=== PATIENT | female | born 1990 | race Caucasian/White ===

== ENCOUNTER 2019-09-22 10:45 | Emergency (ER) | payer MEDICAID, SELFPAY ==
[2019-09-22 10:51] VITALS: BMI 33.6
[2019-09-22 10:55] VITALS: BP 132/85; PULSE 111; RESP 18; TEMP 36.9; O2SAT 98
--- NOTE | 2019-09-22 11:04 | ED_ITS ---
HPI - Skin/Abscess/Foreign Bdy General: Chief complaint: Skin/Abscess/Foreign Body Stated complaint: 33 WEEKS PREG/INSECT BITE/SENT BY DR VANCE Time Seen by Provider: 09/22/19 10:50 History of Present Illness: HPI narrative: Patient is female is sent over by Edmundo Vance's office who has possible spider bite to her left upper arm. She is 33 weeks was seen at the local primary care provider in [place] and was placed on antibiotics and does not seem like the area is improving redness is still present was sent here by Dr. ruano to be evaluated. complaint: other (Possible brown recluse bite left upper arm) Onset (ago): day(s) Severity: mild Associated symptoms: Reports no associated symptoms; Deny chills, fever(s), nausea or vomiting Treatments prior to arrival: other (Antibiotics) Review of Systems Const: Denies: fever(s), chills or body aches Eyes: Denies: change in vision or blurry vision ENMT: Denies: throat pain or nasal congestion Card: Denies: chest pain or dyspnea on exertion Resp: Denies: dyspnea, productive cough or non-productive cough GI: Denies: abdominal pain, nausea or vomiting Musc: Denies: extremity pain Skin/Breast: Reports: erythema (Left upper arm times few days possible spider bite) and other; Denies: rash Neuro: Denies: headache(s) Psych: Denies: anxiety or depression Son/Lymph: Denies: easy bruising PFSH ED PFSH: Family History (Updated 09/09/19 @ 08:55 by Eufemia Aguirre RN) Grandmother Diabetes paternal Stroke paternal Denies family history of Clotting disorder Hyperlipidemia Anesthesia complication Bleeding disorder Hypertension Social History (Updated 09/09/19 @ 08:55 by Eufemia Aguirre RN) Smoking and tobacco status: never smoked Alcohol intake: never Female Reproductive History: Date of last menstrual period: 01/29/19 Physical Exam Const: COMMON NORMALS: no acute distress, average body habitus and patient oriented x3 HENMT: COMMON NORMALS: normocephalic HEAD & SCALP: normal to inspection and normocephalic FACE & SINUS: normal facial exam Eye: COMMON NORMALS: conjunctivae normal GENERAL EYE: appearance normal, both eyes and all related structures CONJUNCTIVA: Yes conjunctivae normal Neck/C-Spine: COMMON NORMALS: no JVD Chest: COMMONS NORMALS: normal inspection of the chest Resp: COMMON NORMALS: normal respiratory effort Cardio: COMMON NORMALS: no JVD and regular rhythm RATE: tachycardic RHYTHM: regular rhythm GI: COMMON NORMALS: Normal to inspection, nondistended, normoactive bowel sounds present Extremity: COMMON NORMALS: normal to inspection and full ROM Neuro: COMMON NORMALS: patient oriented x3 Skin: GENERAL SKIN EXAM: other (Patient has an area of redness left upper arm medial aspect centered around the central area of induration that strongly resembles what a brown recluse bite would look like. Redness extends out about 2 and half inches from the center and then down to the base of the left upper arm does not follow blood tract. Is not swollen. Peers to be consistent with localized reaction no lymphadenopathy noted) Course Vital Signs: Vital signs: Vital Signs Temperature 98.4 F 09/22/19 10:55 Pulse Rate 111 H 09/22/19 10:55 Respiratory Rate 18 09/22/19 10:55 Blood Pressure 132/85 09/22/19 10:55 Pulse Oximetry 98 09/22/19 10:55 Discharge Plan Discharge Prescriptions: No Action Unisom (doxylamine) 25 mg tablet 25 mg PO Q6H PRNRF: 0 acetaminophen [Tylenol Extra Strength] 500 mg tablet 500 mg PO Q6H RF: 0 prenat.vits,jc,[id number] Tablet 1 tab PO DAILY RF: 0 Coding Level of Care Code ED Chief Psychologist for Kaley Lozoya
[2019-09-22 11:25] VITALS: BP 132/85; PULSE 105; RESP 18; O2SAT 99
== END 2019-09-22 11:28 | disposition home or self-care (01) ==
PROVIDERS: Emergency Provider Nurse Practitioner Family
DX: O9A.213 Injury, poisoning and certain other consequences of external causes complicating pregnancy, third trimester (principal); S41.152A Open bite of left upper arm, initial encounter; Z3A.33 33 weeks gestation of pregnancy; W57.XXXA Bitten or stung by nonvenomous insect and other nonvenomous arthropods, initial encounter
CPT/HCPCS: 12345; 99281

== ENCOUNTER → 2019-10-28 08:43 | Outpatient (BNVA) | payer MEDICAID, SELFPAY | PROVIDERS: Visit Provider Internal Medicine | DX: Z11.59 Encounter for screening for other viral diseases (principal) | CPT/HCPCS: 87635 ==

== ENCOUNTER 2019-11-02 05:41 | Inpatient (IN) | payer MEDICAID, SELFPAY ==
[2019-11-02] VITALS (19 sets, daily range): BP systolic 100–145; BP diastolic 59–90; PULSE 82–117; RESP 16–20; TEMP 36.5–36.9; O2SAT 94–98; BMI 36.0
[2019-11-02] MEDS: lactated ringers 1,000 ML 999 ML IV ×2 (06:22→06:30)
[2019-11-02 06:29] LABS: Basophils % 0.3 %; Eosinophils # 0.3 10^3/uL (0.0-0.8); Eosinophils % 2.4 %; Hemoglobin 12.7 g/dL (11.5-15.3); Lymphocytes # 2.8 10^3/uL (0.8-4.8); Lymphocytes % 20.6 %; Mean Corpuscular HGB Conc 34.3 g/dL (30.0-36.0); Mean Corpuscular Hemoglobin 31.4 pg (28.0-34.0); Mean Corpuscular Volume 91.6 fL (81-99); Mean Platelet Volume 10.5 fL (7.4-10.4); Monocytes # 0.8 10^3/uL (0.2-0.9); Monocytes % 6.1 %; Neutrophils % 69.6 %; Nucleated Red Blood Cells % 0 %; Platelet Count 202 10^3/cmm (130-400); Red Blood Count 4.04 10^6/uL (4.1-5.3); Red Cell Distribution Width 13.2 % (12.1-15.1); White Blood Count 13.5 10^3/uL (4.0-10.0)
[2019-11-02] MEDS: metoclopramide 5 mg/mL SDV 2 mL 10 MG IVP (06:51)
[2019-11-02] MEDS: citric acid-sodium citrate 30 mL UDC PO (06:51)
[2019-11-02] MEDS: famotidine 20 mg/2 mL INJ IVP (06:52)
--- NOTE | 2019-11-02 08:26 | PM.OP ---
Operative Report Date of procedure: November 02, 2019 Pre-op Diagnosis: previous c section Post-op diagnosis: same Post-op Findings: Male term infant, With nuchal cord ?1, Apgars 8/9, weight Procedure Done: Repeat low-transverse delivery Pathology: none sent Surgeon: Kevyn Chacon M.D. Anesthesia: Nerve Block (Spinal) Estimated blood loss (mL): 800 IV fluids (mL): 1,000 Urine output (mL): 50 Complications: None Condition: stable Disposition: other (OB recovery) Brief History: Ms. Browne is a 29 y/o with an LMP of 01/29/2019 and an EDC of 11/05/2019 based on LMP which places her at 39 4/7 weeks gestation with 2 previous delivery. Procedure: After assuring informed consent, the patient was taken to the operating room and anesthesia was initiated. She was placed in the dorsal supine position with a left lateral tilt. The abdomen was prepped and draped in the usual sterile manner. A time-out procedure was performed. A Pfannenstiel skin incision was made with the scalpel and carried through to the underlying layer of fascia with the Bovie. The fascia was nicked in the midline and the incision extended laterally with the Patricio scissors. The superior aspect of the fascial incision was then grasped with Marco clamps and elevated and the underlying rectus muscle dissected off bluntly and sharp with patricio scissors dense adhesions. Attention was then turned to the inferior aspect of the incision which, in similar fashion, was grasped and tented up with Marco clamps and the rectus muscle dissected bluntly. The rectus muscles were then in the midline and the peritoneum identified, tented up and entered sharply with Metzenbaum scissors. The peritoneal incision was then extended superiorly and inferiorly with good visualization of the bladder. The Mikhail O retractor was then inserted and the vesicouterine peritoneum identified, grasped with pickups and entered sharply with Metzenbaum scissors. This incision was then extended laterally and the bladder flap created digitally. The uterus incised in a low transverse fashion with the scalpel. The uterine incision was then extended with the bandage scissors. The was then delivered in the cephalic presentation atraumatically vacuum-assisted , 1 nuchal cord noted. The nose and the mouth were suctioned with bulb and the cord clamped and cut. The infant was handed over to awaiting electronic publications specialist and nursing personnel. Apgars 8/9 with weight of 4300 g. The cord was normal and had three vessels. Amniotic fluid was clear. The placenta was then removed manually and the uterus exteriorized and cleared of all clots and debris. The uterine incision was repaired with 0 Vicryl in a running-locked fashion. A second layer of the same suture was used to obtain excellent hemostasis. The gutters were cleared of all clots. The uterus was then returned to the abdomen. The rectus muscles were approximated with 3-0 chromic gut. The The Exparel was infused around the incision for pain management. The fascia was reapproximated with 0 Vicryl in an interrupted running fashion. The skin was closed with Insorb?s subcuticular absorbable yaya. The patient tolerated the procedure well. The sponge, lap and needle counts were correct times three. The patient was given Ancef 2 gm intravenously immediately after delivery of the .
[2019-11-02] MEDS: ondansetron 2 mg/ML SDV 2 mL 4 MG IVP ×2 (08:57→14:45)
[2019-11-02] MEDS: scopolamine 1.5 Patch 1 PATCH TRANSDERMA (10:09)
--- NOTE | 2019-11-02 10:51 | PC.NURSE ---
Pt ambulated to OR at this time without difficulty.
[2019-11-02] MEDS: ketorolac 30 mg/mL INJ IVP ×2 (14:45→20:25)
[2019-11-02] MEDS: dextrose 5%-lactated ringers 1,000 ML 125 ML IV (15:31)
[2019-11-02 21:10] LABS: Hematocrit 34.8 % (37.0-47.0); Hemoglobin 11.9 g/dL (11.5-15.3); Mean Corpuscular HGB Conc 34.2 g/dL (30.0-36.0); Mean Corpuscular Hemoglobin 31.9 pg (28.0-34.0); Mean Corpuscular Volume 93.3 fL (81-99); Mean Platelet Volume 10.4 fL (7.4-10.4); Platelet Count 215 10^3/cmm (130-400); Red Blood Count 3.73 10^6/uL (4.1-5.3); Red Cell Distribution Width 13.2 % (12.1-15.1); White Blood Count 19.8 10^3/uL (4.0-10.0)
[2019-11-03] MEDS: HYDROcodone-acetaminophen 5-325 mg Tablet PO ×3 (01:55→20:32)
[2019-11-03] MEDS: ketorolac 30 mg/mL INJ IVP (01:55)
[2019-11-03 04:00] VITALS: BP 108/71; PULSE 85; RESP 18; TEMP 36.7; O2SAT 98
[2019-11-03] MEDS: docusate sodium 100 mg Capsule PO ×2 (09:30→18:12)
[2019-11-03] MEDS: prenatal vitamin Capsule 1 CAP PO (09:30)
[2019-11-03] MEDS: ferrous sulfate EC 325 mg Tablet PO (09:31)
[2019-11-03 09:34] VITALS: BP 107/68; PULSE 91
[2019-11-03 15:52] VITALS: BP 102/69; PULSE 87; RESP 17
--- NOTE | 2019-11-03 17:59 | P.PN_ITS ---
Subjective Subjective: Interval history: 29 y/o with an LMP of 01/29/2019 and an EDC of 11/05/2019 based on LMP with HO C/S x2. S/P repeat delivery day 1. Refers pain well-controlled with medication, no complains. Vitals/I&O/Wt Last Vital Signs Temp 98.1 F 11/03/19 04:00 Pulse 87 11/03/19 15:52 Resp 17 11/03/19 15:52 BP 102/69 11/03/19 15:52 Pulse Ox 98 11/03/19 04:00 11/03/19 11/03/19 11/03/19 06:59 14:59 22:59 Intake Total 997.917 / 997.917 Output Total 300 / 1025 100 / 100 Balance 697.917 / -27.083 -100 / -100 Weight last 48 hrs Weight 95.254 kg Physical Exam Narrative: EXAM NARRATIVE: GA: Alert and oriented ?3. HEENT: WNL. Heart: Regular rate and rhythm. Breasts: engorged Nipples - skin intact Lungs: Clear to auscultation bilaterally. Abdomen: Bowel sounds present, minimal tenderness, incision clean and dry, no redness, pain or edema. Uterine fundus below umbilicus. No Fundal Tenderness. ECOLOGICAL MODELER: No bleeding. Extremities: No edema, no cyanosis, no calves pain. Urinary Catheter Management^: Hill: Cath Placed During This Visit: yes, but has since been removed by the nurse Reason for Continuing Indwelling Catheter: Other Urinary Catheter Date of Insertion: 11/02/19 Urinary Catheter Time of Insertion: 07:20 Date Urinary Catheter Removed: 11/03/19 Time Urinary Catheter Discontinued: 00:50 Data : 11/02/19 20:40 A&P Additional A&P Information Patient is a status post repeat delivery day 1. She is afebrile hemodynamically stable. Ambulating without difficulty. Tolerating diet well. Plan: Discharge home tomorrow Attestations Medical Necessity Statement*: In my professional opinion per admitting diagnosis Coding Level of Care Code Acute Research Environmental Scientist for Kaley Lozoya
[2019-11-03 22:00] VITALS: BP 109/63; PULSE 96; RESP 18; TEMP 36.4
[2019-11-04] MEDS: HYDROcodone-acetaminophen 5-325 mg Tablet PO ×3 (02:52→11:46)
[2019-11-04 04:38] VITALS: BP 106/69; PULSE 74; RESP 16
[2019-11-04] MEDS: prenatal vitamin Capsule 1 CAP PO (07:22)
[2019-11-04] MEDS: docusate sodium 100 mg Capsule PO (08:36)
[2019-11-04 10:42] VITALS: BP 111/73; PULSE 86; RESP 16; TEMP 36.7; O2SAT 97
--- NOTE | 2019-11-04 16:02 | P.DS_ITS ---
Discharge Providers GLOBAL ACCOUNT DIRECTOR Date of Admission: 11/02/19 05:41 Date of Discharge: 11/04/19 Attending Provider at Admission: Kevyn Chacon MD Attending Provider at Discharge: Kevyn Chacon MD Diagnoses at Discharge Discharge Diagnosis (1) H/O section: Status: Acute Problem details: x2 (2) Delivery by section of full-term infant: Status: Acute Reason for Visit Reason for Visit: REPEAT SECTION Hospital Course Hospital Course: 29-year-old female with an estimated gestational age of 39 weeks and 4 days, With a history of 2 previous deliveries admitted for a repeat delivery. Repeat chest low-transverse delivery was performed without complications. She delivered a male infant, Apgars 8/9, with a weight of 4300 g. Postop observation, uneventful. She is afebrile and hemodynamically stable. Tolerating diet well, ambulating without difficulty, incision healing well. Pain under control with medication. Information Peripartum Data: Delivery Method: Section Physical Exam Narrative: EXAM NARRATIVE: GA: Alert and oriented ?3. HEENT: WNL. Heart: Regular rate and rhythm. Breasts: engorged Nipples - skin intact. Lungs: Clear to auscultation bilaterally. Abdomen: Bowel sounds present, Uterine fundus below umbilicus. No Fundal Tenderness. Minimal tenderness, incision clean and dry, no redness, pain or edema. CIRCUS HAND: normal lochia. Extremities: No edema, no cyanosis, no calves pain. Urinary Catheter Management^: Hill: Cath Placed During This Visit: yes, but has since been removed by the nurse Reason for Continuing Indwelling Catheter: Other Urinary Catheter Date of Insertion: 11/02/19 Urinary Catheter Time of Insertion: 07:20 Date Urinary Catheter Removed: 11/03/19 Time Urinary Catheter Discontinued: 00:50 Discharge Data Vitals: Last Vital Signs Temp 98.0 F 11/04/19 10:42 Pulse 86 11/04/19 10:42 Resp 16 11/04/19 10:42 BP 111/73 11/04/19 10:42 Pulse Ox 97 11/04/19 10:42 Discharge Plan Discharge Patient Disposition: Home Condition: Stable Prescriptions: [place] 5-325 mg tablet 1 tab PO Q4H PRN (Reason: pain) Qty: 30 RF: 0 ferrous sulfate [Iron (ferrous sulfate)] 325 mg (65 mg iron) tablet 325 mg PO BID Qty: 60 RF: 0 ibuprofen 800 mg tablet 800 mg PO TID PRN (Reason: pain) Qty: 60 RF: 0 Continued Unisom (doxylamine) 25 mg tablet 25 mg PO Q6H PRN (Reason: Sleep) RF: 0 acetaminophen [Tylenol Extra Strength] 500 mg tablet 500 mg PO Q6H RF: 0 prenat.vits,[id number] Tablet 1 tab PO DAILY RF: 0 Discharge Orders: Discharge Order (Routine); Ordered 11/04/19 Ordered By: Kevyn Chacon Referrals: Kevyn Chacon MD [Physician] - 11/15/19 12:45 pm (* Your 2 week incision check is with Dr. Chacon on 11/15/2019 at 12:45pm * Your 6 week follow up appointment is with Dr. Chacon on 12/13/2019 at 10:45am. ) Discharge Diet: As Directed Discharge Activity: Increase activity as tolerated Patient Instructions: OB WHC, OB Discharge Report, OB Food/Drug Interaction Guide, OB Home Care, OB Proud Parent Packet Activity Restrictions/Additional Instructions: Pelvic rest for 6 weeks (no sex, no tampons, no vaginal douches). Return to the emergency room if any fever, increased bleeding or pain. Discharge Attestations GLOBAL ACCOUNT DIRECTOR Time Spent in Discharge Care*: greater than 30 min Specific Discharge Activities: Specific discharge activities: educating patient and educating and/or supporting family/caregiver Coding Level of Care Code Acute Municipal Court Judge for Chg Fwd Diagnoses H/O section Z98.891 Delivery by section of full-term O82
[2019-11-04 16:29] VITALS: BP 112/75; PULSE 87; RESP 18; TEMP 36.7; O2SAT 98
== END 2019-11-04 17:02 | disposition home or self-care (01) | DRG 788 ==
LOC: OPOB 05:41 → OBGYN 05:41
PROVIDERS: Admitting Provider Obstetrics & Gynecology; Visit Provider Obstetrics & Gynecology
DX: O34.211 Maternal care for low transverse scar from previous cesarean delivery (principal); N85.8 Other specified noninflammatory disorders of uterus; Z3A.39 39 weeks gestation of pregnancy; Z37.0 Single live birth; O69.81X0 Labor and delivery complicated by cord around neck, without compression, not applicable or unspecified
CPT/HCPCS: 12345; 51702; 59025; 59409; 85025; 85027; 86900; 96375; C9290; J1100; J1885; J2274; J2370; J2405; J2765; J3490